=== PATIENT | male | born 2000 | race Caucasian/White ===

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

== ENCOUNTER 2022-05-28 18:38 | Emergency (ER) | payer OTHER, SELFPAY ==
[2022-05-28 18:45] VITALS: BP 152/94; PULSE 91; RESP 18; TEMP 36.7; O2SAT 100
--- NOTE | 2022-05-28 19:11 | ED.GENADUL_ITS ---
Discharge Plan Disposition Patient Disposition: HOME Condition: Stable Discharge Details Clinical Impression: Devlin's palsy Primary Care Provider: Yoon Ferrer ED Provider: Kami Berg Home Meds and New Rx's Prescriptions: New prednisone 20 mg tablet 60 mg PO ONCE Qty: 18 0RF No Action valacyclovir 500 mg tablet 1,000 mg PO TID 7 Days Qty: 42 0RF Discharge Instructions Additional Instructions: artificial tears when awake, lacrilube and tape eye closed at night glasses during day take steroids as prescribed Your symptoms are likely resolve completely in time, please be reassessed in the next several weeks with your primary care physician and return earlier should you have any worsening complaint Discharge Data Discharge Date/Time-TO BE ENTERED AT DEPARTURE: 05/28/22 19:23 Medical Decision Making Suspect Devlin's palsy and patient will be referred back to PCP, started on high- dose steroids for the next 7 days Declined risk of Lyme or herpes Return precautions discussed and patient expressed understanding Given the threshold to return should he have new or worsening complaints Maintaining secretions, will keep eye closed at night and use Lacri-Lube Did consider CVA, TIA more on the cause of her patient's complaints, however given neurological exam findings, 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 HPI General Date/Time Provider Initiated Documentation: 05/28/22 19:11 . HPI Narrative: This 22-year-old male presents with acute onset of left facial droop which started this morning when he awoke. He states that his left eye is irritated and he has been having trouble closing his mouth on the left side. He denies history of similar symptoms in the past. He is otherwise reportedly healthy. He denies any speech or sensation change. Denies any history of illicit drug use. Denies any neck pain or tick bites. Denies history of herpes. Related Data Home Medications Medication Instructions Recorded Confirmed prednisone 20 mg tablet 60 mg PO ONCE #18 tabs 05/28/22 05/29/22 valacyclovir 500 mg tablet 1,000 mg PO TID 7 days #42 tabs 05/29/22 05/29/22 Previous Rx's Medication Instructions Recorded prednisone 20 mg tablet 60 mg PO ONCE #18 tabs 05/28/22 valacyclovir 500 mg tablet 1,000 mg PO TID 7 days #42 tabs 05/29/22 Allergies Allergy/AdvReac Type Severity Reaction Status Date / Time No Known Allergies Allergy Verified 05/29/22 13:44 General Stated Complaint: GenMedical JAILYN: 3 Review of Systems All systems reviewed & are unremarkable except as noted in HPI and below PFSH All Active Problems (Updated 05/28/22 @ 19:13 by CLAY Bah) Devlin's palsy (Acute) Crushing injury of right index finger (Acute ~12/18/18) Routine child health exam (Chronic 05/31/13) 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 Father No problems noted. Sister No problems noted. Brother Asthma younger brother Brother No problems noted. Social History Smoking/Tobacco Use Status: Current every day Tobacco Type: e-cigarettes Smoking risk assessment performed?: Yes Alcohol Intake: current Alcohol Intake frequency: holidays/special occasions only Drug use: Daily Substance use type: marijuana Pets and animals: Yes Pets and animals: dog(s) Seatbelt use: sometimes Water heater temp set <120 deg: Yes Fire extinguisher in home: Yes Carbon monox detector in home: Yes Firearms in home: Yes Do you feel safe at home: Yes Do you feel safe in your relationship?: Yes Exam Const General: cooperative, comfortable and no acute distress HENMT Mouth: oral mucosae normal Other: Uvula midline Eyes Pupils: PERRL Other: Extraocular muscles intact Neck Other: No carotid bruit or pulsatile mass Resp Effort & Inspection: normal respiratory effort Auscultation: clear to auscultation bilaterally Cardio Rate: regular rate Neuro General: patient alert and patient oriented x3 Cranial Nerves: CN's II-XI intact bilaterally, PERRL and tongue midline Cognition: normal cognition Speech: speech normal Sensory Exam: no sensory deficits noted Other: Patient with left facial droop consistent with a cranial nerve VII palsy, droop entire left face including eyebrow Course Vital Signs Vital signs: Vital Signs Temperature 36.7 C 05/28/22 18:45 Pulse 91 H 05/28/22 18:45 Respiratory Rate 18 05/28/22 18:45 Blood Pressure 152/94 H 05/28/22 18:45 Pulse Oximetry 100 05/28/22 18:45 Temperature 36.7 C 05/28/22 18:45 Temperature Source Temporal Artery Scan 05/28/22 18:45 Pulse 91 H 05/28/22 18:45 Respiratory Rate 18 05/28/22 18:45 Respiratory Effort Non-Labored 05/28/22 18:51 Blood Pressure 152/94 H 05/28/22 18:45 Blood Pressure Position Sitting 05/28/22 18:45 Pulse Oximetry 100 05/28/22 18:45 Oxygen Delivery Method Room Air 05/28/22 18:45 Oxygen Flow Rate 0 05/28/22 18:45 PAWSS Have you Been Recently Intoxicated or Drunk Within the Last 30 days?: No Have you Ever Experienced Previous Episodes of Alcohol Withdrawal?: No Have you ever Experienced Withdrawal Seizures?: No Have you ever Experienced Delirium Tremens(DT)s?: No Have you ever undergone Alcohol Rehabilitation Treatment (i.e, inpt ot outpatient treatment programs)?: No Have you ever Experienced Blackouts?: No Have you ever Combined Alcohol with other Downers within the last 90 days?: No Have you ever Combined Alcohol with any other Substance of Abuse during the last 90 days?: No Positive Blood Alcohol level on Presentation? [PCS.BAL]: No Evidence of Increased Autonomic Activity (i.e. HR>120, tremor, sweating, agitation, nausea)?: No Result: 0
[2022-05-28] MEDS: predniSONE 20 MG TAB 60 MG PO (19:24)
== END 2022-05-28 19:23 | disposition home or self-care (01) ==
PROVIDERS: Emergency Provider Physician Assistant
DX: G51.0 Bell's palsy (principal)
CPT/HCPCS: 99283; 99284; J7512

== ENCOUNTER 2022-05-29 14:23 | Outpatient (RCR) | payer OTHER, SELFPAY ==
[2022-05-29 14:52] LABS: Abs Immature Grans 0.04 10^3/uL (0.0-0.06); Absolute Basophil Count 0.03 10^3/uL (0.0-0.2); Absolute Eosinophil Count 0.11 10^3/uL (0.0-0.7); Absolute Lymphocyte Count 4.84 10^3/uL (1.2-3.4); Absolute Monocyte Count 1.58 10^3/uL (0.1-0.8); Basophils % 0.2; Eosinophils % 0.7; HCT 45.9 % (40.0-50.0); HGB 15.8 g/dL (13.5-17.5); Immature Grans % 0.3; Lymphocytes % 32.1; MCH 28.4 pg (27.0-33.0); MCHC 34.4 % (32.0-36.0); MCV 83 fL (80-95); MPV 10.3 fL (8.0-11.0); Monocytes % 10.5; Neutrophils % 56.2; Platelet Count 338 10^3/uL (130-400); RBC 5.56 10^6/uL (4.36-5.78); RDW 12.8 % (11.8-14.1); RDW-SD 38.5 fL; WBC 15.08 10^3/uL (4.4-10.8)
[2022-05-29 14:56] LABS: ESR 18 mm/hr (0-15)
[2022-05-29 14:58] LABS: Absolute Neutrophil Count 8.47 10^3/uL (1.2-6.7)
[2022-05-29 15:08] LABS: C-Reactive Protein 0.65 mg/dL (0.0-0.3)
[2022-05-29 15:21] LABS: Diff Comment Agrees w/ Instrument; RBC Morphology Normal
[2022-06-01 10:50] LABS: Lyme Ab w Rflx to Lyme Confirm Negative (Negative)
[2022-06-01 18:54] LABS: Anaplasma phagocytophilum Negative (Negative); B. miyamotoi PCR Negative (Negative); Babesia divergens/MO-1 Negative (Negative); Babesia duncani Negative (Negative); Babesia microti Negative (Negative); Ehrlichia chaffeensis Negative (Negative); Ehrlichia ewingii/canis Negative (Negative); Ehrlichia muris eauclairensis Negative (Negative)
== END 2022-06-08 23:59 | disposition home or self-care (01) ==
LOC: INF 14:23
PROVIDERS: Visit Provider Family Medicine
DX: R10.9 Unspecified abdominal pain (principal); G51.0 Bell's palsy
CPT/HCPCS: 36415; 85652; 87798; 85025; 86140; 86618